=== PATIENT | female | born 2000 | race Caucasian/White ===

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

== ENCOUNTER 2022-12-30 12:54 | Emergency (ER) | payer MEDICAID, SELFPAY ==
--- NOTE | 2022-12-30 13:02 | ED_ITS ---
HPI - General Adult General: Chief complaint: Chest Pain Stated complaint: CHEST/ BACK PAIN Time Seen by Provider: 12/30/22 13:02 History of Present Illness: Ms. Zimmer is a 22-year-old lady with history of C- section on 12/21 presented to the emergency department for sudden onset chest and back pain. She reports sitting breast-feeding when she had sudden onset of pain primarily in the mid back rating up to the chest on the left side as well as anterior chest and mild shortness of breath. Intensity symptoms is moderate. Worse with movement and deep inspiration. No other specific changes in health, exacerbating, or alleviating factors identified. Onset (ago): minute(s) Location: chest, back and left Severity: moderate Quality: stabbing and sharp Pain Consistency: constant Relieving factors: none Exacerbating factors: movement Review of Systems General: Reports: 10 or more systems reviewed and unremarkable except in HPI and below PFSH ED PFSH: Family History Grandmother Diabetes Maternal Family/Other Diabetes Maternal Aunt Hypertension Maternal Aunt Breast cancer Maternal Aunt--dx age Denies family history of Colon cancer Ovarian cancer Heart disease Hypercholesteremia Bleeding disorder Uterine cancer Thyroid disease Stroke Social History Smoking and tobacco status: never smoked Additional social history: - Tobacco use: Vapes Alcohol use: Drug use: Physical Exam Const: COMMON NORMALS: alert GENERAL APPEARANCE: cooperative and well developed HENMT: COMMON NORMALS: normocephalic and atraumatic HEAD & SCALP: normocephalic and atraumatic Eye: COMMON NORMALS: conjunctivae normal CONJUNCTIVA: Yes conjunctivae normal SCLERA: sclerae normal Neck/C-Spine: COMMON NORMALS: supple GENERAL: Yes trachea midline Resp: COMMON NORMALS: clear to auscultation bilaterally EFFORT & INSPECTION: Yes able to speak in complete sentences AUSCULTATION: clear to auscultation bilaterally Cardio: COMMON NORMALS: regular rate and regular rhythm RATE: regular rate RHYTHM: regular rhythm GI: COMMON NORMALS: Soft to palpation PALPATION: Yes Soft to palpation, Yes Tenderness to palpation present (GI), No Guarding due to palpation present (GI) and No Rigid due to palpation Extremity: GENERAL: Yes normal exam except as noted and No edema Neuro: COMMON NORMALS: moves all extremities SENSORIUM/ORIENTATION: Yes alert and No Orientation impaired Psych: COMMON NORMALS: mental status grossly normal and Normal thought process present THOUGHT PROCESS: Normal thought process present Course Vital Signs: Vital signs: Vital Signs Temperature 97.9 F 12/30/22 13:12 Pulse Rate 60 12/30/22 18:20 Respiratory Rate 16 12/30/22 18:20 Blood Pressure 134/85 12/30/22 18:20 Pulse Oximetry 97 12/30/22 18:20 Oxygen Delivery Me thod 12/30/22 13:12 MDM - General Adult Medical Decision Making 22 lady presenting with chest and back pain. Recent history of . Exam as above. EKG notable for sinus rhythm, normal axis and intervals, no STEMI. Labs with minimal leukocytosis, no other significant hematologic abnormalities. Metabolic panel without derangement to explain symptoms. D-dimer is elevated. CT imaging negative for acute pathology to explain symptoms. Incidental findings including fluid collection discussed and need for follow-up discussed. No evidence of cellulitis on exam. Patient proved with symptom treatment. Most likely etiology of patient symptoms is unspecified chest and back pain. The results of ED evaluation were discussed with the patient including prescriptions and/or symptomatic cares (if applicable) including appropriate and responsible use, followup plan, and return precautions. The patient verbalized understanding and felt safe for discharge. Medical Records I reviewed the patient's medical records. Lab Data I reviewed the patient's lab results. 12/30/22 13:37 12/30/22 13:37 Radiology Impressions Chest/Abdomen/Pelvis CT 12/30/22 14:29 IMPRESSION: 1. No CT evidence of pulmonary embolism. 2. Trace right pleural effusion. 3. Additional findings, as above. IMPRESSION: 1. Small amount of loculated fluid along the anterior aspect of the uterus, as described above, possibly a postoperative seroma. Resolving hematoma and abscess can not be entirely excluded. Continued clinical and imaging surveillance is recommended to exclude underlying wound dehiscence. 2. Mild central biliary ductal dilatation with the common bile duct measuring up to approximately 7 mm. Correlate with LFTs. 3. Additional findings, as above. Laboratory Results WBC 10.7 10^3/uL (4.0-10.0) H 12/30/22 13:37 RBC 4.41 10^6/uL (4.1-5.3) 12/30/22 13:37 Hgb 12.1 g/dL (11.5-15.3) 12/30/22 13:37 Hct 38.6 % (37.0-47.0) 12/30/22 13:37 MCV 87.5 fl (81-99) 12/30/22 13:37 MCH 27.4 pg (28.0-34.0) L 12/30/22 13:37 MCHC 31.3 g/dL (30.0-36.0) 12/30/22 13:37 RDW 13.7 % (12.1-15.1) 12/30/22 13:37 Plt Count 354 10^3/cmm (130-400) 12/30/22 13:37 MPV 10.9 fL (7.4-10.4) H 12/30/22 13:37 Neut % (Auto) 77.8 % 12/30/22 13:37 Lymph % (Auto) 12.1 % 12/30/22 13:37 [place] % (Auto) 5.3 % 12/30/22 13:37 Eos % (Auto) 3.8 % 12/30/22 13:37 Baso % (Auto) 0.4 % 12/30/22 13:37 Neut # (Auto) 8.36 10^3/uL (1.8-7.7) H 12/30/22 13:37 Lymph # (Auto) 1.3 10^3/uL (0.8-4.8) 12/30/22 13:37 [place] # (Auto) 0.6 10^3/uL (0.2-0.9) 12/30/22 13:37 Eos # (Auto) 0.4 10^3/uL (0.0-0.8) 12/30/22 13:37 Baso # (Auto) 0.0 10^3/uL (0.0-0.1) 12/30/22 13:37 Nucleated RBC % (auto) 0 % 12/30/22 13:37 Nucleated RBCs # 0.0 /100WBC 12/30/22 13:37 D-Dimer 2.84 ug/mIFEU (0-0.59) H 12/30/22 13:37 Sodium 138 mmol/L (136-145) 12/30/22 13:37 Potassium 4.2 mmol/L (3.5-5.1) 12/30/22 13:37 Chloride 103 mmol/L (98-107) 12/30/22 13:37 Carbon Dioxide 22 mmol/L (22-29) 12/30/22 13:37 Anion Gap 17.2 (5-19) 12/30/22 13:37 BUN 12 mg/dL (6-20) 12/30/22 13:37 Creatinine 0.7 mg/dL (0.5-0.9) 12/30/22 13:37 GFR Calculation 105.6 mL/min (90-130) 12/30/22 13:37 Glucose 80 mg/dL (65-115) 12/30/22 13:37 Calculated Osmolality 285 mOsm/kg (285-295) 12/30/22 13:37 Calcium 8.4 mg/dL (8.5-10.5) L 12/30/22 13:37 Total Bilirubin 0.2 mg/dL (0.15-1.2) 12/30/22 13:37 AST 28 U/L (0-32) 12/30/22 13:37 ALT 13 U/L (0-33) 12/30/22 13:37 Alkaline Phosphatase 238 U/L (35-105) H 12/30/22 13:37 Troponin T Baseline 6 ng/L (0-10) 12/30/22 13:37 Troponin T 120 Minute 6.00 ng/L (0-10) 12/30/22 15:42 Delta Troponin T 0 ABS# (0-10) 12/30/22 15:42 Total Protein 6.4 g/dL (6.6-8.7) L 12/30/22 13:37 Albumin 3.4 g/dL (3.5-5.2) L 12/30/22 13:37 Globulin 3.0 g/dL (1.3-4.6) 12/30/22 13:37 Lipase 23 U/L (13-60) 12/30/22 13:37 Discharge Plan Discharge Patient Disposition: Home Clinical Impression: Chest pain, Back pain, Post-operative state, Bronchitis Condition: Stable Prescriptions: New oxycodone 5 mg tablet 5 mg PO Q4H PRN (Reason: pain) Qty: 10 0RF azithromycin 250 mg tablet See Rx Instructions .ROUTE .COMPLEX Qty: 6 0RF Rx Instructions: For 250 mg dose pack: take 500 mg today (day 1), then 250 mg for 4 days (days 2-5) Discharge Orders: Discharge ED (Routine); Ordered 12/30/22 Ordered By: Juan Diallo Discharge Diet: Usual diet Discharge Activity: Limit activity as instructed Patient Instructions: Chest Pain (ED), Acute Bronchitis (ED), Back Pain (ED), Opioid Safety Activity Restrictions/Additional Instructions: Thank you for visiting the emergency department. You were seen and evaluated for chest and back pain. The exact cause of your symptoms is unclear. You do have mild bronchitis which will be treated with antibiotics. You may use [id number] medications such as acetaminophen and ibuprofen for pain however please do not exceed the daily recommended dosage as listed on the packaging and please keep in mind that many namebrand medications contain the same active ingredients. Please avoid these medications if previously instructed to do so by another physician due to other underlying medical condition. I will also prescribe oxycodone for uncontrolled pain, use this cautiously. As discussed you do have a postoperative fluid collection which may be normal. 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 This is likely normal however abscess can have similar appearance. Please watch for signs of infection. Return to the emergency department for uncontrolled symptoms or anything else that you are concerned about and feel needs emergency department evaluation. Coding Level of Care Code ED Disaster Recovery Specialist for Lino Basilio
[2022-12-30 13:12] VITALS: BP 134/85; PULSE 60; RESP 16; TEMP 36.6; O2SAT 97; BMI 41.6
[2022-12-30] MEDS: morphine 4 mg/mL SDV 1 mL IVP ×2 (13:28→18:04)
--- NOTE | 2022-12-30 13:37 | ECG_ITS ---
[facility] Test Date: 2022-12-30 Pat Name: Sultana Zimmer Department: Room: Gender: Female Systems Technologist: : 2000 Requested By: Juan Diallo Order Number: [id number] Dion MD: Jane Carter M.D. Measurements Intervals [place] Rate: 60 P: 47 MT: 140 QRS: 56 QRSD: 81 T: 33 QT: 394 QTc: 395 Interpretive Statements SINUS RHYTHM No previous ECG available for comparison Electronically Signed On 12-30-2022 20:05:53 EXPERIMENTAL PSYCHOLOGIST by Jane Carter M.D. [id number]
[2022-12-30 13:50] LABS: Basophils % 0.4 %; Eosinophils # 0.4 10^3/uL (0.0-0.8); Eosinophils % 3.8 %; Hematocrit 38.6 % (37.0-47.0); Hemoglobin 12.1 g/dL (11.5-15.3); Lymphocytes # 1.3 10^3/uL (0.8-4.8); Lymphocytes % 12.1 %; Mean Corpuscular HGB Conc 31.3 g/dL (30.0-36.0); Mean Corpuscular Hemoglobin 27.4 pg (28.0-34.0); Mean Corpuscular Volume 87.5 fl (81-99); Mean Platelet Volume 10.9 fL (7.4-10.4); Monocytes # 0.6 10^3/uL (0.2-0.9); Monocytes % 5.3 %; Neutrophils # 8.36 10^3/uL (1.8-7.7); Neutrophils % 77.8 %; Nucleated Red Blood Cells % 0 %; Platelet Count 354 10^3/cmm (130-400); Red Blood Count 4.41 10^6/uL (4.1-5.3); Red Cell Distribution Width 13.7 % (12.1-15.1); White Blood Count 10.7 10^3/uL (4.0-10.0)
[2022-12-30 14:26] LABS: Alanine Aminotransferase 13 U/L (0-33); Albumin Level 3.4 g/dL (3.5-5.2); Alkaline Phosphatase 238 U/L (35-105); Anion Gap 17.2 (5-19); Aspartate Amino Transferase 28 U/L (0-32); Blood Urea Nitrogen 12 mg/dL (6-20); Calcium 8.4 mg/dL (8.5-10.5); Carbon Dioxide 22 mmol/L (22-29); Chloride 103 mmol/L (98-107); Creatinine Clr Calc Pharmacy 148.6696; Glomerular Filtration Rate 105.6 mL/min (90-130); Glucose 80 mg/dL (65-115); Lipase 23 U/L (13-60); Osmolality Calculated 285 mOsm/kg (285-295); Potassium 4.2 mmol/L (3.5-5.1); Sodium 138 mmol/L (136-145); Total Bilirubin 0.2 mg/dL (0.15-1.2); Total Protein 6.4 g/dL (6.6-8.7)
[2022-12-30 14:28] LABS: D Dimer 2.84 ug/mIFEU (0-0.59)
--- NOTE | 2022-12-30 14:29 | CTR_ITS ---
PROCEDURE INFORMATION: Exam: CTA Chest With Contrast Exam date and time: 12/30/2022 4:38 PM Age: 22 years old Clinical indication: Abdominal pain; Generalized; Chest pressure; Prior surgery; Surgery date: 3-7 days post-operative; Surgery type: Csection x1 wk ago; Additional info: Cp/back pain, recent c section, elevated ddimer TECHNIQUE: Imaging protocol: Computed tomographic angiography of the chest with contrast. Axial, coronal and sagittal reformatted images were created and reviewed. 3D rendering (Not supervised by radiologist): MIP and/or 3D reconstructed images were created by the technologist. Radiation optimization: All CT scans at this facility use at least one of these dose optimization techniques: automated exposure control; mA and/or kV adjustment per patient size (includes targeted exams where dose is matched to clinical indication); or iterative reconstruction. Contrast material: OMNIPAQUE 350; Contrast volume: 95 ml; Contrast route: INTRAVENOUS (IV); Other protocol: This patient has received 0 known CTs and 0 known cardiac nuclear medicine studies in the 12 months prior to the current study. COMPARISON: No relevant prior studies available. RADIATION DOSE METRICS: Total DLP (mGy-cm): 686.29 FINDINGS: Pulmonary arteries: Contrast opacification satisfactory. No intraluminal filling defect. Aorta: Unremarkable. No aneurysm or dissection. Lungs: Mild central peribronchial thickening, suggestive of airway inflammation. Mild linear stranding and groundglass, likely due to atelectasis and/or scarring. No consolidation. Pleural spaces: Trace right pleural effusion. Heart: Unremarkable. No cardiomegaly. No pericardial effusion. Lymph nodes: No pathologically enlarged lymph nodes. Bones/joints: No acute osseous abnormality. Soft tissues: Unremarkable. PROCEDURE INFORMATION: Exam: CT Abdomen And Pelvis With Contrast Exam date and time: 12/30/2022 4:38 PM Age: 22 years old Clinical indication: Abdominal pain; Generalized; Chest pressure; Prior surgery; Surgery date: 3-7 days post-operative; Surgery type: Csection x1 wk ago; Additional info: Cp/back pain, recent c section, elevated ddimer TECHNIQUE: Imaging protocol: Computed tomography of the abdomen and pelvis with contrast. Axial, coronal and sagittal reformatted images were created and reviewed. Radiation optimization: All CT scans at this facility use at least one of these dose optimization techniques: automated exposure control; mA and/or kV adjustment per patient size (includes targeted exams where dose is matched to clinical indication); or iterative reconstruction. Contrast material: OMNIPAQUE 350; Contrast volume: 95 ml; Contrast route: INTRAVENOUS (IV); Other protocol: This patient has received 0 known CTs and 0 known cardiac nuclear medicine studies in the 12 months prior to the current study. COMPARISON: US OB >= 14 weeks fetus [id number] 12/03/2016 1:08 PM RADIATION DOSE METRICS: Total DLP (mGy-cm): 686.29 FINDINGS: Liver: Coarse calcified hepatic granulomata. Mild hepatomegaly. Gallbladder and bile ducts: Mild central biliary ductal dilatation with the common bile duct measuring up to approximately 7 mm. Pancreas: Unremarkable. Spleen: Mild splenomegaly. Adrenal glands: Normal. No mass. Kidneys and ureters: No mass. No radiodense calculi. No hydronephrosis. Stomach and bowel: No bowel wall thickening. No obstruction. No pneumatosis. Appendix: Normal. Intraperitoneal space: Trace nonspecific free pelvic fluid, likely physiologic. Small amount of loculated fluid along the anterior aspect of the uterus, measuring up to approximately 7.3 x 1.9 x 3.9 cm. No free air. Vasculature: Unremarkable. No aneurysm. Lymph nodes: No pathologically enlarged lymph nodes. Urinary bladder: Unremarkable as visualized. Reproductive: uterus. Bones/joints: No acute osseous abnormality. Soft tissues: Unremarkable. CT/CT angio chest w abd pel w con IMPRESSION: 1. No CT evidence of pulmonary embolism. 2. Trace right pleural effusion. 3. Additional findings, as above. IMPRESSION: 1. Small amount of loculated fluid along the anterior aspect of the uterus, as described above, possibly a postoperative seroma. Resolving hematoma and abscess can not be entirely excluded. Continued clinical and imaging surveillance is recommended to exclude underlying wound dehiscence. 2. Mild central biliary ductal dilatation with the common bile duct measuring up to approximately 7 mm. Correlate with LFTs. 3. Additional findings, as above.
[2022-12-30 14:52] LABS: Troponin(5th) Baseline 6 ng/L (0-10)
--- NOTE | 2022-12-30 16:29 | ECG_ITS ---
[facility] Test Date: 2022-12-30 Pat Name: Sultana Zimmer Department: Room: Gender: Female Flume Worker: : 2000 Requested By: Juan Diallo Order Number: [id number] Dion MD: Jane Carter M.D. Measurements Intervals [place] Rate: 54 P: 54 MA: 135 QRS: 71 QRSD: 87 T: 40 QT: 428 QTc: 409 Interpretive Statements SINUS BRADYCARDIA Compared to ECG 12/30/2022 13:37:05 Sinus rhythm no longer present Electronically Signed On 12-30-2022 20:17:00 MATHEMATICAL TECHNICIAN by Jane Carter M.D. [id number]
[2022-12-30] MEDS: iohexol 350 mg/mL 500 mL Btl (per mL) IV (16:44)
[2022-12-30 17:02] LABS: Troponin 5 2HR Delta 0 ABS# (0-10)
[2022-12-30] MEDS: acetaminophen 500 mg Tablet 1000 MG PO (18:02)
[2022-12-30] MEDS: ketorolac 30 mg/mL INJ 15 MG IVP (18:05)
[2022-12-30 18:20] VITALS: BP 134/85; PULSE 60; RESP 16; O2SAT 97
== END 2022-12-30 18:23 | disposition home or self-care (01) ==
PROVIDERS: Emergency Provider Emergency Medicine
DX: O99.893 Other specified diseases and conditions complicating puerperium (principal); R07.9 Chest pain, unspecified; M54.6 Pain in thoracic spine; O99.53 Diseases of the respiratory system complicating the puerperium; J40 Bronchitis, not specified as acute or chronic; O90.89 Other complications of the puerperium, not elsewhere classified; R91.8 Other nonspecific abnormal finding of lung field; Z98.890 Other specified postprocedural states
CPT/HCPCS: 36415; 71275; 74177; 80053; 83690; 84484; 85025; 85378; 93005; 96374; 96375; 96376; 99285; J1885; J2270; Q9967

== ENCOUNTER → 2024-05-08 09:07 | Outpatient (BNVA) | payer MEDICAID, SELFPAY | PROVIDERS: Visit Provider Nurse Practitioner Family | DX: J02.9 Acute pharyngitis, unspecified (principal) | CPT/HCPCS: 87880 ==

== ENCOUNTER 2024-06-22 23:44 | Emergency (ER) | payer MEDICAID, SELFPAY ==
[2024-06-22 23:44] VITALS: BP 143/67; PULSE 101; RESP 16; TEMP 36.7; O2SAT 98; BMI 43.4
--- NOTE | 2024-06-22 23:54 | XRR_ITS ---
PROCEDURE INFORMATION: Exam: XR Chest Exam date and time: 06/22/2024 11:59 PM Age: 23 years old Clinical indication: Chest pressure; Patient HX: C/O chest pain TECHNIQUE: Imaging protocol: Radiologic exam of the chest. Views: 1 view. COMPARISON: CT angio chest w abd pel w con 12/30/2022 4:38 PM FINDINGS: Lungs: Lung volumes are diminished. Mild asymmetric elevation of the right hemidiaphragm. Mild central pulmonary vascular congestion without overt edema. No consolidative airspace disease. Pleural spaces: Unremarkable. No pleural effusion. No pneumothorax. Heart/Mediastinum: Unremarkable. No cardiomegaly. Bones/joints: Unremarkable. XR/XR chest 1V portable [id number] IMPRESSION: Mild central pulmonary vascular congestion without overt edema. No consolidative airspace disease.
--- NOTE | 2024-06-22 23:55 | ED_ITS ---
HPI - Chest Pain 2 General: Chief Complaint: Chest Pain Stated Complaint: Chest pain Time Seen by Provider: 06/22/24 23:46 Source: patient Mode of arrival: EMS Limitations: no limitations History of Present Illness: Patient is a 23-year-old female who presents to ED today with a complaint of chest pain. She states chest pain started a few hours ago while at rest. She states she vapes throughout the day and had just inhaled prior to chest pain starting. She states at onset the pain was a 10/10 and radiated to her back. She states she called her family crying due to discomfort. Upon arrival to the emergency department she feels like pain has improved. She is now rating it a 4-5/10. She has no known cardiac or pulmonary history. She reports 1 previous similar episode approximately a year ago when she was evaluated here in the emergency department. No identifiable cause was noted at that time. She denies recent illness. Denies drug use. She does not have any abdominal pain. She currently has no complaints of shortness of breath or difficulty breathing. She does risk factors for PE. MD complaint: chest pain Onset (ago): hour(s) Timing of current episode: constant and other (improving) Prior episodes: Yes (one) Onset: during rest Pain location: substernal Pain radiation: back Quality: sharp Relieving factors: nothing Exacerbating factors: nothing Context: other (had just finished vaping) Associated symptoms: Reports no associated symptoms; Deny abdominal pain, dyspnea, fever(s), nausea, palpitations, syncope or vomiting Treatment prior to arrival: none Risk Factors: Coronary artery disease risk factors: none Thoracic aortic dissection risk factors: none Related Data Previous Rx's Medication Instructions Recorded amoxicillin 875 mg tablet 875 mg PO BID 7 days #14 tabs 05/08/24 Allergies Allergy/AdvReac Type Severity Reaction Status Date / Time No Known Allergies Allergy Verified 05/08/24 08:58 Review of Systems 2 Const: Denies: fever(s), chills, body aches, fatigue or malaise Eyes: Denies: change in vision, blurry vision, photophobia, floaters or seeing flashes Card: Reports: chest pain; Denies: palpitations, irregular heart rhythm, edema, swelling of feet/ankles, lightheadedness, syncope, pre-syncope, dyspnea on exertion, orthopnea, leg pain with exertion or acrocyanosis Resp: Denies: dyspnea, productive cough, non-productive cough, wheezing, pain on inspiration, hemoptysis or chest congestion GI: Denies: abdominal pain, nausea, vomiting or diarrhea : Denies: flank pain or dysuria Musc: Denies: neck pain, back pain, extremity pain, extremity swelling, joint pain or joint swelling Skin/Breast: Denies: rash Neuro: Denies: headache(s), numbness in extremities, weakness in extremities, sensory changes or confusion PFSH ED 2 PFSH: Family History Grandmother Diabetes Maternal Family/Other Diabetes Maternal Aunt Hypertension Maternal Aunt Breast cancer Maternal Aunt--dx age Denies family history of Colon cancer Ovarian cancer Heart disease Hypercholesteremia Bleeding disorder Uterine cancer Thyroid disease Stroke Social History Smoking and tobacco/nicotine status: never used tobacco/nicotine Additional social history: - Tobacco use: Vapes Alcohol use: Drug use: Physical Exam 2 Const: COMMON NORMALS: no acute distress, patient oriented x3, no limitations, alert and well nourished GENERAL APPEARANCE: cooperative NUTRITIONAL APPEARANCE: obese morbidly obese (BMI is 43.4) ORIENTATION/CONSCIOUSNESS: Yes awake, Yes oriented to person, Yes oriented to place and Yes oriented to time Eye: GENERAL EYE: appearance normal, both eyes and all related structures Neck/C-Spine: GENERAL: Yes normal visual inspection Chest: COMMONS NORMALS: normal inspection of the chest and normal palpation of entire chest wall Resp: COMMON NORMALS: normal respiratory effort and clear to auscultation bilaterally AUSCULTATION: clear to auscultation bilaterally Cardio: COMMON NORMALS: regular rate and regular rhythm RATE: regular rate RHYTHM: regular rhythm GI: COMMON NORMALS: Normal to inspection, nondistended, normoactive bowel sounds present, Soft to palpation, non-tender, No hepatosplenomegaly present and no masses PALPATION: Yes Soft to palpation and Yes No hepatosplenomegaly present Back/Pelvis: COMMON NORMALS: thoracic and lumbar spine normal to inspection Extremity: COMMON NORMALS: no clubbing, cyanosis or edema, no calf tenderness and no pedal edema GENERAL: Yes normal exam except as noted Neuro: COMMON NORMALS: patient oriented x3, moves all extremities, no focal motor deficits and no sensory deficits noted SENSORIUM/ORIENTATION: Yes alert, Yes oriented to person, Yes oriented to place and Yes oriented to time Skin: COMMON NORMALS: no rashes or lesions noted GENERAL SKIN EXAM: no rashes or lesions noted Course 2 Vital Signs: Vital signs: Vital Signs Temperature 98.1 F 06/22/24 23:44 Pulse Rate 99 06/23/24 00:31 Respiratory Rate 16 06/23/24 00:31 Blood Pressure 126/73 06/23/24 00:31 Pulse Oximetry 97 06/23/24 00:31 Oxygen Delivery Me thod Room Air 06/22/24 23:44 MDM - Chest Pain Medical Decision Making Patient's chest pain has fully resolved while here and has not returned. She appears in no acute distress. Her vital signs are unremarkable. Blood work overall is nonactionable. EKG is non-ischemic. CXR reporting mild central pulmonary vascular congestion without overt edema. Unknown significance of this. History could suggest a mild vaping associated lung injury vs musculoskeletal vs idiopathic. Ultimately at time of discharge she is completely asymptomatic. Recommend follow-up with primary care next week. Return to ED precautions given. Medical Records I reviewed the patient's medical records. Lab Data I reviewed the patient's lab results. 06/23/24 00:03 06/22/24 00:03 Radiology Impressions Chest X-Ray 06/22/24 23:54 IMPRESSION: Mild central pulmonary vascular congestion without overt edema. No consolidative airspace disease. Laboratory Results WBC 7.67 10^3/uL (3.29-11.43) 06/23/24 00:03 RBC 4.75 10^6/uL (3.85-5.65) 06/23/24 00:03 Hgb 13.30 g/dL (11.27-16.99) 06/23/24 00:03 Hct 41.1 % (36-47) 06/23/24 00:03 MCV 86.5 fl (85-98) 06/23/24 00:03 MCH 28.0 pg (27-33) 06/23/24 00:03 MCHC 32.4 g/dL (30-55) 06/23/24 00:03 RDW 11.9 % (12.1-15.1) L 06/23/24 00:03 Plt Count 253 10^3/cmm (157-399) 06/23/24 00:03 MPV 11.1 fL (7.4-10.4) H 06/23/24 00:03 Neut % (Auto) 57.5 % 06/23/24 00:03 Lymph % (Auto) 30.2 % 06/23/24 00:03 [place] % (Auto) 7.3 % 06/23/24 00:03 Eos % (Auto) 4.0 % 06/23/24 00:03 Baso % (Auto) 0.7 % 06/23/24 00:03 Neut # (Auto) 4.41 10^3/uL (1.8-7.7) 06/23/24 00:03 Lymph # (Auto) 2.3 10^3/uL (0.8-4.8) 06/23/24 00:03 [place] # (Auto) 0.6 10^3/uL (0.2-0.9) 06/23/24 00:03 Eos # (Auto) 0.3 10^3/uL (0.0-0.8) 06/23/24 00:03 Baso # (Auto) 0.1 10^3/uL (0.0-0.1) 06/23/24 00:03 Nucleated RBC % (auto) 0 % 06/23/24 00:03 Nucleated RBCs # 0.0 /100WBC 06/23/24 00:03 Sodium 138 mmol/L (136-145) 06/22/24 00:03 Potassium 3.9 mmol/L (3.5-5.1) 06/22/24 00:03 Chloride 103 mmol/L (98-107) 06/22/24 00:03 Carbon Dioxide 21 mmol/L (22-29) L 06/22/24 00:03 Anion Gap 17.9 (5-19) 06/22/24 00:03 BUN 13 mg/dL (6-20) 06/22/24 00:03 Creatinine 0.7 mg/dL (0.5-0.9) 06/22/24 00:03 GFR Calculation 104.6 mL/min (90-130) 06/22/24 00:03 Glucose 107 mg/dL (65-115) 06/22/24 00:03 Calculated Osmolality 287 mOsm/kg (285-295) 06/22/24 00:03 Calcium 8.4 mg/dL (8.5-10.5) L 06/22/24 00:03 Total Bilirubin 0.3 mg/dL (0.15-1.2) 06/22/24 00:03 AST 11 U/L (0-32) 06/22/24 00:03 ALT 10 U/L (0-33) 06/22/24 00:03 Alkaline Phosphatase 128 U/L (35-105) H 06/22/24 00:03 Troponin T Baseline < 6 ng/L (0-10) 06/22/24 00:03 NT-Pro-B Natriuret Pep < 36 pg/mL (0-125) 06/22/24 00:03 Total Protein 7.2 g/dL (6.6-8.7) 06/22/24 00:03 Albumin 3.9 g/dL (3.5-5.2) 06/22/24 00:03 Globulin 3.3 g/dL (1.3-4.6) 06/22/24 00:03 HCG, Qual Negative (Negative) 06/22/24 00:03 All radiology interpretation(s) finalized by discharge Discharge Plan Discharge Patient Disposition: Home Clinical Impression: Atypical chest pain Condition: Stable Prescriptions: No Action amoxicillin 875 mg tablet 875 mg PO BID 7 Days Qty: 14 0RF Discharge Orders: Discharge ED (Routine); Ordered 06/23/24 Ordered By: Janice Alexander Referrals: Tigist Alexandre MD [Primary Care Provider] - Patient Instructions: Chest Pain (DC) Activity Restrictions/Additional Instructions: As we discussed I would like you to follow-up with your primary care provider next week for reevaluation. You may return to the emergency department for worsening chest pain, shortness of breath, difficulty breathing, or any other concerns you may have. Coding Level of Care Code ED Fitter / Welder for Lino Basilio
[2024-06-23 00:10] LABS: Basophils # 0.1 10^3/uL (0.0-0.1); Basophils % 0.7 %; Eosinophils # 0.3 10^3/uL (0.0-0.8); Hematocrit 41.1 % (36-47); Lymphocytes # 2.3 10^3/uL (0.8-4.8); Lymphocytes % 30.2 %; Mean Corpuscular HGB Conc 32.4 g/dL (30-55); Mean Corpuscular Volume 86.5 fl (85-98); Mean Platelet Volume 11.1 fL (7.4-10.4); Monocytes # 0.6 10^3/uL (0.2-0.9); Monocytes % 7.3 %; Neutrophils # 4.41 10^3/uL (1.8-7.7); Neutrophils % 57.5 %; Nucleated Red Blood Cells % 0 %; Platelet Count 253 10^3/cmm (157-399); Red Blood Count 4.75 10^6/uL (3.85-5.65); Red Cell Distribution Width 11.9 % (12.1-15.1); White Blood Count 7.67 10^3/uL (3.29-11.43)
[2024-06-23 00:27] LABS: HCG, Serum Qual Negative (Negative)
[2024-06-23 00:31] VITALS: BP 126/73; PULSE 99; RESP 16; O2SAT 97
[2024-06-23 00:33] LABS: Troponin(5th) Baseline < 6 ng/L (0-10)
[2024-06-23 00:46] LABS: Alanine Aminotransferase 10 U/L (0-33); Albumin Level 3.9 g/dL (3.5-5.2); Alkaline Phosphatase 128 U/L (35-105); Anion Gap 17.9 (5-19); Aspartate Amino Transferase 11 U/L (0-32); Blood Urea Nitrogen 13 mg/dL (6-20); Calcium 8.4 mg/dL (8.5-10.5); Carbon Dioxide 21 mmol/L (22-29); Chloride 103 mmol/L (98-107); Creatinine Clr Calc Pharmacy 151.0311; Globulin 3.3 g/dL (1.3-4.6); Glomerular Filtration Rate 104.6 mL/min (90-130); Glucose 107 mg/dL (65-115); Osmolality Calculated 287 mOsm/kg (285-295); Potassium 3.9 mmol/L (3.5-5.1); Sodium 138 mmol/L (136-145); Total Bilirubin 0.3 mg/dL (0.15-1.2); Total Protein 7.2 g/dL (6.6-8.7)
[2024-06-23 01:03] LABS: NT Pro B Type Natriuretic Pept < 36 pg/mL (0-125)
[2024-06-23 01:53] VITALS: BP 94/69; PULSE 98; RESP 16; O2SAT 97
== END 2024-06-23 01:56 | disposition home or self-care (01) ==
PROVIDERS: Emergency Provider Physician Assistant; PCP Pediatrics
DX: R07.89 Other chest pain (principal); R09.89 Other specified symptoms and signs involving the circulatory and respiratory systems
CPT/HCPCS: 36415; 71045; 80053; 83880; 84484; 84703; 85025; 99285